=== PATIENT | female | born 1975 | race Caucasian/White ===

== ENCOUNTER 2020-02-22 10:24 | Day surgery (SDC) | payer OTHER ==
[~2020-02-22] VITALS: Ht 154.9 cm; Wt 98.1 kg
[~2020-02-22 10:24] MED LIST: CITALOPRAM HBR10 MG PO; ROPI1 PO; ZYRTEC10 M1 PO
--- NOTE | 2020-02-22 11:36 | NUR ---
02/22/20 1136 Nisha Ramos S BOTTOM TEETH BLEEDING, PT. SPIT OUT BITE BLOCK & HAD TO PUT BITE BLOCK BACK IN PER ORSC.CMT
--- NOTE | 2020-02-22 14:07 | NUR ---
02/22/20 1109 Nisha Ramos S LATE ENTRY PT. DENIED ANY PAIN EXCEPT FOR A SCRATCHY THROAT. PT. WAS INFORMED THAT SHE HAD SPIT THE BITE BLOCK OUT & IT HAD TO BE PUT BACK IN & PER ANESTHETIST HER BOTTOM GUMS WERE BLEEDING. POST PROCEDURE NO BLEEDING WAS OBSERVED & PT. DIDN'T C/O ANY PAIN OR SORENESS IN HER MOUTH.
== END 2020-02-22 12:22 | disposition home or self-care (01) ==
LOC: ORSCSDS 10:24
PROVIDERS: Internal Medicine Gastroenterology
PROC: 0DB68ZX Excision of Stomach, Via Natural or Artificial Opening Endoscopic, Diagnostic (ICD-10-PCS; principal; 2020-02-22 11:30)
PROC: 0DB58ZX Excision of Esophagus, Via Natural or Artificial Opening Endoscopic, Diagnostic (ICD-10-PCS; principal; 2020-02-22 11:30)
PROC: 0DBB8ZX Excision of Ileum, Via Natural or Artificial Opening Endoscopic, Diagnostic (ICD-10-PCS; principal; 2020-02-22 11:30)
PROC: 0DBE8ZX Excision of Large Intestine, Via Natural or Artificial Opening Endoscopic, Diagnostic (ICD-10-PCS; principal; 2020-02-22 11:30)
DX: K62.5 Hemorrhage of anus and rectum (principal); R13.10 Dysphagia, unspecified; K21.00 Gastro-esophageal reflux disease with esophagitis, without bleeding; R19.7 Diarrhea, unspecified; K64.1 Second degree hemorrhoids; E66.01 Morbid (severe) obesity due to excess calories; Z68.41 Body mass index [BMI] 40.0-44.9, adult
CPT/HCPCS: 88305; 88312; 88342; J2250; J2405; J2704; J7120

== ENCOUNTER → 2020-05-15 | Outpatient (CLI) | payer OTHER ==
[2020-05-16 10:00] LABS: Candida species (DNA Probe) Negative (NEGATIVE); G. vaginalis (DNA Probe) Negative (NEGATIVE); T. vaginalis (DNA Probe) Negative (NEGATIVE)
== END | disposition home or self-care (01) ==
LOC: LAB SHORT 19:42 → LAB 19:42
PROVIDERS: Family Medicine
DX: N76.0 Acute vaginitis (principal)
CPT/HCPCS: 87480; 87510; 87660